=== PATIENT | male | born 1945 | race Caucasian/White ===

== ENCOUNTER 2021-12-29 22:11 | Emergency (ER) | payer MEDICARE, OTHER ==
[2021-12-29 23:07] LABS: CHLORIDE,CL 101 mmol/L (98-107); SODIUM,NA 137 mmol/L (136-145)
== END 2021-12-29 23:58 | disposition home or self-care (01) ==
LOC: LL.ED 22:11
DX: E83.42 Hypomagnesemia (principal); E11.9 Type 2 diabetes mellitus without complications; R03.0 Elevated blood-pressure reading, without diagnosis of hypertension
CPT/HCPCS: 36415; 71046; 80053; 81003; 83735; 85025; 99284; 99284-25